=== PATIENT | female | born 1965 | race Caucasian/White ===

== ENCOUNTER 2017-08-21 09:58 | Emergency (ER) | payer MEDICAID ==
[2017-08-21 10:13] VITALS: BP 136/93
--- NOTE | 2017-08-21 10:19 | ED Physician Documentation ---
PD HPI URI - Stated complaint Stated Complaint: BODYACHES/COLDS - Chief complaint Chief Complaint: General - History obtained from History obtained from: Patient - History of Present Illness Timing - onset: How many weeks ago (1) Timing duration: Weeks (1) Timing details: Gradual onset, Still present (worsening past 2 days with purulent nasal discharge and cough now. Sinus pressure.) Associated symptoms: Fever, Chills, Nasal congestion, Sinus pain, Productive cough. No: Sore throat, NVD Contributing factors: No: Sick contact, Travel, COPD / asthma Similar symptoms before: Diagnosis (sinus infections) Recently seen: Not recently seen Review of Systems Constitutional: reports: Fever, Chills Nose: reports: Congestion, Sinus pressure / pain Throat: denies: Sore throat Respiratory: reports: Cough GI: denies: Nausea, Vomiting, Diarrhea Skin: denies: Rash PD PAST MEDICAL HISTORY - Past Medical History Cardiovascular: None Respiratory: None Neuro: None Endocrine/Autoimmune: None - Present Medications Home Medications: Ambulatory Orders Medication Instructions Recorded Confirmed Albuterol Sulf [Ventolin Hfa 1 - 2 puffs INH Q4HR PRN #1 inhaler 08/21/17 Inhaler] Amoxicillin 500 mg PO TID #20 capsule 08/21/17 Benzonatate [Tessalon] 100 mg PO TID PRN #25 capsule 08/21/17 Dexamethasone [Decadron] 4 mg PO DAILY #5 tablet 08/21/17 Ondansetron Odt [Zofran] 4 mg TL Q6H PRN #15 tablet 08/21/17 - Allergies Allergies/Adverse Reactions: Allergies Allergy/AdvReac Type Severity Reaction Status Date / Time codeine Allergy Rash Verified 08/21/17 10:14 hydrocodone Allergy Rash Verified 08/21/17 10:14 PD ED PE NORMAL - Vitals Vital signs reviewed: Yes - General General: Alert and oriented X 3, No acute distress, Well developed/nourished - HEENT HEENT: Moist mucous membranes, Pharynx benign, Other (left maxillary sinus tender to percussion) - Neck Neck: Supple, no meningeal sign, No adenopathy - Cardiac Cardiac: RRR, No murmur - Respiratory Respiratory: Clear bilaterally - Abdomen Abdomen: Soft, Non tender - Derm Derm: Normal color, Warm and dry, No rash PD MEDICAL DECISION MAKING - ED course Complexity details: considered differential (she is quite convinced of bacterial cause for this. ), d/w patient Departure - Departure Disposition: 01 Home, Self Care Clinical Impression: Upper respiratory infection Qualifiers: URI type: unspecified URI Qualified Code(s): J06.9 - Acute upper respiratory infection, unspecified Sinusitis Qualifiers: Sinusitis location: unspecified location Chronicity: acute Recurrence: non- recurrent Qualified Code(s): J01.90 - Acute sinusitis, unspecified Condition: Stable Record reviewed to determine appropriate education?: Yes Instructions: ED Upper Resp Infec Abx Tx Follow-Up: [facility] [Provider Group] Prescriptions: Albuterol Sulf [Ventolin Hfa Inhaler] 1 - 2 puffs INH Q4HR PRN #1 inhaler PRN Reason: Shortness Of Air/Wheezing Amoxicillin 500 mg PO TID #20 capsule Benzonatate [Tessalon] 100 mg PO TID PRN #25 capsule PRN Reason: Cough Dexamethasone [Decadron] 4 mg PO DAILY #5 tablet Ondansetron Odt [Zofran] 4 mg TL Q6H PRN #15 tablet PRN Reason: Nausea / Vomiting Comments: Drink lots of fluids. Use the Decadron steroid daily for 5 more days. Amoxicillin 3 times a day for a week for infection. This may be just viral still but will treat potential secondary infection. Use Tessalon if needed for cough. Albuterol inhaler 2 puffs 4 times a day for wheezing and cough. Tylenol or ibuprofen if needed for fevers or pains. Presume he will start improving over the next several days.Ondansetron if needed for nausea. Discharge Date/Time: 08/21/17 11:24
[2017-08-21] MEDS ORDERED: ACETAMINOPHEN 325 MG TABLET PO STA (10:46)
[2017-08-21] MEDS ORDERED: DEXAMETHASONE 10 MG/ML VIAL PO STA (10:46)
[2017-08-21] MEDS ORDERED: ACETAMINOPHEN 325 MG TABLET PO ONE (10:54)
[2017-08-21] MEDS ORDERED: DEXAMETHASONE 10 MG/ML VIAL ONE (10:54)
== END 2017-08-21 11:24 | disposition home or self-care (01) ==
LOC: ED 09:58
DX: J01.90 Acute sinusitis, unspecified (principal)
CPT/HCPCS: 99283; A9270